=== PATIENT | male | born 1995 | race Two or more races ===

== ENCOUNTER 2023-04-28 12:05 | Emergency (ER) | payer OTHER ==
[~2023-04-28] VITALS: Ht 182.9 cm; Wt 90.7 kg
[2023-04-28] MEDS ORDERED: MAXITROL EYE DRO5 ML OP (12:30)
== END 2023-04-28 12:35 | disposition home or self-care (01) ==
LOC: ER 12:05
DX: H10.30 Unspecified acute conjunctivitis, unspecified eye (principal)